=== PATIENT | male | born 1975 | race Caucasian/White ===

== ENCOUNTER 2021-02-17 18:46 | Emergency (ER) | payer OTHER ==
[2021-02-17 22:06] LABS: HEMOGLOBIN 16.8 gm/dl (14.0-17.5); RED BLOOD COUNT 5.24 M/UL (4.20-5.50); WHITE BLOOD COUNT 9.7 K/UL (4.5-11.0)
[2021-02-17 22:38] LABS: BUN/CREATININE RATIO 14 (0-10)
[2021-02-17] MEDS ORDERED: IBUPROFEN800 MG PO (23:58)
== END 2021-02-18 00:07 | disposition home or self-care (01) ==
LOC: ER1 18:46
PROVIDERS: Nurse Practitioner
DX: S80.02XA Contusion of left knee, initial encounter (principal); S80.01XA Contusion of right knee, initial encounter; S20.211A Contusion of right front wall of thorax, initial encounter; F17.210 Nicotine dependence, cigarettes, uncomplicated; V49.9XXA Car occupant (driver) (passenger) injured in unspecified traffic accident, initial encounter
CPT/HCPCS: 70450; 71260; 72131; 73562; 80053; 82550; 82553; 83874; 84484; 85025; 93005; 99284; Q9967

== ENCOUNTER → 2021-11-07 | Outpatient (CLI) | payer OTHER ==
[~2021-11-07] MED LIST: IBUPROFEN800 MG PO
== END ==
LOC: HEART CORB 10:45
DX: R07.2 Precordial pain (principal); R06.02 Shortness of breath; R00.2 Palpitations; I10 Essential (primary) hypertension; E78.5 Hyperlipidemia, unspecified; E11.9 Type 2 diabetes mellitus without complications
CPT/HCPCS: 78452; A9502; J2785